=== PATIENT | male | born 1955 | race American Indian/Alaskan Native ===

== ENCOUNTER 2018-02-02 07:43 | Outpatient (CLI) | payer OTHER ==
[2018-02-02] MEDS ORDERED: PROVENTIL IH ONE (08:38)
== END 2018-02-02 07:44 | disposition home or self-care (01) ==
LOC: PF 07:43
PROVIDERS: ATTEND Internal Medicine
DX: Z02.71 Encounter for disability determination (principal); J45.909 Unspecified asthma, uncomplicated; F17.210 Nicotine dependence, cigarettes, uncomplicated
CPT/HCPCS: 94060; 94640; 94729